=== PATIENT | male | born 1970 | race American Indian/Alaskan Native ===

== ENCOUNTER 2018-05-31 20:37 | Emergency (ER) | payer OTHER, MEDICAID ==
[2018-05-31 21:18] VITALS: BP 137/90; PULSE 77; RESP 16; TEMP 98.3; O2SAT 99
--- NOTE | 2018-05-31 22:17 | ED PDOC ---
HPI: Back Time Seen by Provider: 05/31/18 21:29 Chief Complaint (Nursing): Back Pain History Per: Patient History/Exam Limitations: no limitations Onset/Duration Of Symptoms: Hrs Current Symptoms Are (Timing): Still Present Quality Of Discomfort: Sharp Description Of Injury (Context): cabinet fell on mid upper back Severity: Mild Past Medical History Reviewed: Historical Data, Nursing Documentation, Vital Signs Vital Signs: Last Vital Signs Temp 98.3 F 05/31/18 21:13 Pulse 77 05/31/18 21:13 Resp 16 05/31/18 21:13 BP 137/90 05/31/18 21:13 Pulse Ox 99 05/31/18 21:13 - Medical History PMH: No Chronic Diseases - Surgical History Surgical History: No Surg Hx - Family History Family History: States: No Known Family Hx - Allergies Allergies/Adverse Reactions: Allergies Allergy/AdvReac Type Severity Reaction Status Date / Time No Known Allergies Allergy Verified 05/31/18 21:13 Physical Exam - Reviewed Vital Signs Reviewed: Yes - Physical Exam Appears: Positive for: Well, Non-toxic Head Exam: Positive for: ATRAUMATIC Skin: Positive for: Normal Color Neck: Positive for: Normal, Painless ROM. Negative for: Decreased ROM Cardiovascular/Chest: Positive for: Other (Mild tenderness with no swelling or ecchymosis to right upper back, (-) midline tenderness.) - ECG O2 Sat by Pulse Oximetry: 99 Medical Decision Making Medical Decision Making: motrin po given. cxr: no ptx, no obv fx; as read by me pt. well appearing, breathing easily, no distress. Disposition - Clinical Impression Clinical Impression: Back pain - Patient ED Disposition Is Patient to be Admitted: No Counseled Patient/Family Regarding: Studies Performed, Diagnosis - Disposition Disposition: Routine/Home Disposition Time: 22:54 Condition: STABLE Instructions: Upper Back Pain (DC) Forms: [employer] (Thai)
--- NOTE | 2018-06-01 13:11 | RAD ---
Date of service: 05/31/2018 HISTORY: trauma COMPARISON: No prior. TECHNIQUE: Chest PA and lateral FINDINGS: LUNGS: No active pulmonary disease. PLEURA: No significant pleural effusion identified. No pneumothorax apparent. CARDIOVASCULAR: No aortic atherosclerotic calcification present. Normal cardiac size. No pulmonary vascular congestion. OSSEOUS STRUCTURES: No significant abnormalities. VISUALIZED UPPER ABDOMEN: Normal. OTHER FINDINGS: None. IMPRESSION: No active disease.
== END 2018-06-01 00:46 | disposition home or self-care (01) ==
LOC: H.ER 20:37
DX: M54.9 Dorsalgia, unspecified (principal); W22.8XXA Striking against or struck by other objects, initial encounter; Y99.0 Civilian activity done for income or pay